=== PATIENT | male | born 1985 ===

== ENCOUNTER 2024-03-07 11:17 | Emergency (ER) | payer BC ==
[2024-03-07] MEDS: Lidocaine 1% 5 ML VIAL INJECT ONE (11:33)
== END 2024-03-07 12:05 | disposition home or self-care (01) ==
LOC: MW.ED 11:17
DX: L05.01 Pilonidal cyst with abscess (principal); Z91.011 Allergy to milk products; Z75.8 Other problems related to medical facilities and other health care
CPT/HCPCS: 10060; 99283; 99283-25; J3490